=== PATIENT | female | born 1995 | race Caucasian/White ===

== ENCOUNTER 2018-02-14 19:57 | Inpatient (IN) | payer OTHER ==
[2018-02-14] MEDS ORDERED: Lactated Ringer's 1,000 ML IV ONE (21:54)
[2018-02-14 21:58] VITALS: BMI 38.2
[2018-02-14] MEDS ORDERED: Betamethasone Soluspan 30 mg/5mL Inj Susp IM ONE (22:05)
[2018-02-14 22:16] LABS: BASO % 0.4 % (0.0-2.0); EOS % 0.6 % (0.0-4.0); HEMOGLOBIN 10.6 g/dL (12.0-16.0); LYMPH # 2.6 K/uL (1.0-4.3); LYMPH % 27.3 % (20.0-40.0); MEAN CELL VOLUME 83.6 fl (81.0-99.0); MEAN CORPUSCULAR HEMOGLOBIN 28.7 pg (27.0-31.0); MEAN CORPUSCULAR HGB CONC 34.3 g/dL (33.0-37.0); MEAN PLATELET VOLUME 8.2 fl (7.2-11.7); MONO # 0.7 K/uL (0.0-0.8); MONO % 7.2 % (0.0-10.0); NEUT # 6.2 K/uL (1.8-7.0); NEUT % 64.5 % (50.0-75.0); RBC 3.71 Mil/uL (3.80-5.20); RED CELL DISTRIBUTION WIDTH 13.4 % (11.5-14.5); WHITE BLOOD COUNT 9.7 K/uL (4.8-10.8)
[2018-02-14 22:17] LABS: EOS # 0.1 K/uL (0.0-0.7)
[2018-02-14 22:34] LABS: URINE CLARITY CLOUDY (Clear); URINE COLOR YELLOW (YELLOW); URINE GLUCOSE (UA) NEG (Normal)
[2018-02-14 22:35] LABS: URINE BILIRUBIN NEGATIVE (NEGATIVE); URINE BLOOD SMALL (NEGATIVE); URINE PROTEIN NEGATIVE (NEGATIVE); URINE UROBILINOGEN 0.2 mg/dL (0.2-1.0)
[2018-02-14 22:36] LABS: SQUAMOUS EPITHIAL 15 /hpf (0-5); URINE BACTERIA OCC (<OCC); URINE CALCIUM OXALATE CRYSTALS FEW /hpf (<OCC); URINE LEUKOCYTE ESTERASE LARGE Leu/uL (Negative)
[2018-02-15 01:57] VITALS: RESP 20
[2018-02-15] MEDS ORDERED: Betamethasone Soluspan 30 mg/5mL Inj Susp IM ONE (22:00)
[2018-02-16] MEDS ORDERED: Oxytocin 30 UNIT 30 UNITS/500 ML BAG IV ONE (11:00)
[2018-02-16] MEDS: Lactated Ringer's 1,000 ML IV SCH ×2 (12:00→19:15)
[2018-02-16 20:00] LABS: BARBITURATES, UR NEGATIVE (NEGATIVE); BENZODIAZEPINES, UR NEGATIVE (NEGATIVE); OPIATES, UR NEGATIVE (NEGATIVE); PHENCYCLIDINE, UR NEGATIVE (NEGATIVE)
--- NOTE | 2018-02-16 23:08 | OBPN ---
Datetime: 02/16/2018 23:07 IP Progress Impression Other: category 1 heart tracing IP Progress Plan: Continue present management; Augmentation FHR - Baseline A Provider: 120s-130s Vital Signs Provider: Reviewed; Within Normal Limits NICHD Accel Fetus A IP Provider: 15X15 NICHD Variability Prov Fetus A: Moderate 6-25bpm Datetime: 02/16/2018 09:45 IP Progress Impression: Normal progression of labor IP Informed Consent Obtain: Vaginal Delivery IP Progress Note Comment: Cervidil removed exam: closed, 60%, -3 Pt able to shower, eat breakfast and start augmenting with pitocin Addendum: I saw patient and discussed plan. Plan to start Pitocin augmentation. All patient questions answer ed. Ariadna Case dw Dr. Ariadna Cleveland MD PGY2 Datetime: 02/15/2018 19:51 Contraction Comments Provider: Sporadic Gestation - Est Wks by US: 36.3 FHR Category Provider Fetus A: Category I Dilatation, Provider: 1 Effacement, Provider: 10 Station, Provider: -3 NICHD Decel Fetus A IP Provider: None Datetime: 02/15/2018 08:48 IP Procedures: Sterile Vag Exam
--- NOTE | 2018-02-16 23:12 | OBPN ---
Datetime: 02/16/2018 23:07 IP Progress Note Comment: Category 1 heart tracing. Plan to continue current management. Discu ssed plan with patient all patient questions answered. FHR Category Provider Fetus A: Category I NICHD Decel Fetus A IP Provider: None
[2018-02-17] MEDS: Lactated Ringer's 1,000 ML IV SCH ×4 (03:00→13:46)
[2018-02-17] MEDS ORDERED: Oxytocin 30 UNIT 30 UNITS/500 ML BAG IV ONE (08:38)
[2018-02-17] MEDS ORDERED: ceFAZolin 2 GM in Sodium Chloride 0.9% 100 ML IVPB ONE (08:38)
[2018-02-17] MEDS ORDERED: ceFAZolin IV 2 gm in Dextrose 2 GM/50 ML BAG IVPB ONE (08:38)
[2018-02-17] MEDS ORDERED: OXYTOCIN/0.9 % NS 20 UNIT/1,000 ML BAG IV SCH (08:45)
--- NOTE | 2018-02-17 10:37 | OBPN ---
Datetime: 02/17/2018 08:42 IP Progress Impression: Arrest of dilatation/descent; Reassuring heart rate IP Informed Consent Obtain: Section Delivery IP Procedures: Sterile Vag Exam IP Progress Plan: Deliver- Section FHR - Baseline A Provider: 130 IP Progress Note Comment: 24 YO G@ 36.5wks IUP is examined in L_D this AM. Feeling well, minimal ayana n. VS remain wnl Cervx: FT Strip: HR 130, Catagory I A/P: 36.5wks IUP. Failure to progress. Pt requesting to stop IOL and would like to have a c-sectio n at this time. -Consent signed for -PIT ordered -Ancef 2gm ordered OB Hospitalist note: This morning on rounds, I saw and examined this patient. I examined her (no cervical change). She understood about conitnued IOL, labor, delivery and . With failed induction/failure to progress, she understood about operative delivrey with risks/complications...inf ormed consent obtained Vital Signs Provider: Reviewed; Within Normal Limits NICHD Accel Fetus A IP Provider: 15X15 FHR Category Provider Fetus A: Category I NICHD Variability Prov Fetus A: Moderate 6-25bpm Dilatation, Provider: FT NICHD Decel Fetus A IP Provider: None
[2018-02-17] MEDS ORDERED: Morphine 1 mg/ml preservative-free Inj(Duramorph) ONE (11:06)
[2018-02-17] MEDS ORDERED: Midazolam 2 MG/2 ML VIAL ONE (11:06)
[2018-02-17] MEDS ORDERED: Oxycodone/Acetaminophen 5/325 mg Tab PO PRN ×2 (12:34→12:51)
[2018-02-17] MEDS: DiphenhydrAMINE 50 mg/ml Inj IVP PRN ×2 (13:41→21:29)
[2018-02-17] MEDS: OXYTOCIN/0.9 % NS 20 UNIT/1,000 ML BAG IV SCH ×2 (13:46→13:47)
--- NOTE | 2018-02-17 18:20 | OBDS ---
DELIVERY PERSONNEL Delivery Doctor: Fransisco Bynum DO Scrub Nurse: Felecia Garcia Helicopter Technician: Jena Rowe client service administrator: Angel Awad MD MATERNAL INFORMATION Delivery Anesthesia: Spinal Medications in Delivery: pitocin Estimated Blood Loss (ml): 800 Placenta Cultured: No Maternal Complications: None RN Comments: Atraumatic Primary of viable baby girl with Lusty cry at 2390 grams Infant R ecieved by Dr. Negro and assigned 9/9 's Fibriod uterus notedn EBL at 800cc. tolerated delivery well but was noted tachypnea. Skin to skin initiated. taken to Nursery afterr 5 minutes d ue to respiration for further evaluation (Annotations: Data stored by N on behalf of user) Provider Comments: Pre Op Dx: IUP at36w/ failed induction/failure to progress Post Op Dx same; fibroid uterus Procedure: Primary LTCS via Pfannenstiel incision Surgeon: Dr Fletcher Perdomo Anesth: Dr Awad Anesth: spinal Findings: live female delivered from [facility] presentation; clear fluid; one loose nuchal cord; one fundal fibroid; ovaries and tubes WNL grossly; placenta delivreed intact manually -EBL 800cc -She remained stable -all equipment sponges and needles accounted for LABOR SUMMARY EDC: 03/12/2018 00:00 No. Babies in Womb: 0 Attempted: No Labor Anesthesia: Spinal LABOR INFORMATION Reason for Induction: Oligohydramnios Cervical Ripening Agents: Cervidil Oxytocin: N/A Group B Beta Strep: Done, Result Unknown (Annotations: Done 02/14/2018) Antibiotics # of Doses: 1 Antibiotics Time of Last Dose: 11:25 Steroids Given: Full Course Reason Steroids Not Administered: Not Applicable Other Reason Not Administered: given MEMBRANES Membranes Rupture Method: Artificial Rupture of Membranes: 02/17/2018 11:53 Length of Rupture (hrs): 0.02 Amniotic Fluid Color: Clear Amniotic Fluid Amount: Small Amniotic Fluid Odor: Normal STAGES OF LABOR Stage 3 hrs: 0 Stage 3 min: 1 VAGINAL DELIVERY Episiotomy: None Laceration Extension: N/A Laceration Type: None CSECTION DELIVERY Primary Indication: Failed Induction Secondary Indication: failure to progress CSection Urgency: Non Elective CSection Incidence: Primary CSection Incision: Lower Uterine Transverse Uterine Closure: Double-layer closure BABY A INFORMATION Infant Delivery Date/Time: 02/17/2018 11:54 Method of Delivery: Born in Route : No : N/A Forceps: N/A Vacuum Extraction: N/A Shoulder Dystocia : Yes SHOULDER DYSTOCIA BABY A Delivery Date/Time: 02/17/2018 11:54 PRESENTATION/POSITION BABY A Presentation: Cephalic Cephalic Presentation: Vertex Vertex Position: Left Occipital Anterior Breech Presentation: N/A PLACENTA INFORMATION BABY A Placenta Delivery Time : 02/17/2018 11:55 Placenta Method of Delivery: Manual Removal Placenta Status: Delivered SCORES BABY A Heart Rate 1 min: >100 bpm Resp Effort 1 min: Good Cry Reflex Irritability 1 min: Cough or Sneeze or Pulls Away Muscle Tone 1 min: Active Motion Color 1 min: Body [place], Extremities Blue Resuscitation Effort 1 min: N/A SCORE 1 MIN: 9 Heart Rate 5 min: >100 bpm Resp Effort 5 min: Good Cry Reflex Irritability 5 min: Cough or Sneeze or Pulls Away Muscle Tone 5 min: Active Motion Color 5 min: Body [place], Extremities Blue Resuscitation Effort 5 min: N/A SCORE 5 MIN: 9 INFORMATION BABY A Gestational Age at Delivery: 36.5 Gestational Status: Term Infant Outcome : Liveborn Condition : Stable Infant Sex: Female IDENTIFICATION/MEDS BABY A ID Band Number: [id number] ID Band Location: Right Leg; Right Arm WEIGHT/LENGTH BABY A Birthweight (gms): 2390 Infant Weight (lb): 5 Weight (oz): 4 CORD INFORMATION BABY A No. Cord Vessels: 3 Nuchal Cord : Around Neck x1, Loose Cord Blood Taken: No Suction: Mouth; Nose ASSESSMENT BABY A Infant Complications: Other Infant Complications Other: Tachypnea Physical Findings at Delivery: Within Normal Limits Infant Respirations: Tachypnea Facility Technician/ALS Called : No Care By: Dr Nix Transferred To: Nursery
--- NOTE | 2018-02-17 18:24 | OBDS ---
DELIVERY PERSONNEL Delivery Doctor: Fransisco Bynum DO Scrub Nurse: Felecia Garcia Architect Intern: Jena Rowe deck officer: Angel Awad MD MATERNAL INFORMATION Delivery Anesthesia: Spinal Medications in Delivery: pitocin Estimated Blood Loss (ml): 800 Placenta Cultured: No Maternal Complications: None RN Comments: Atraumatic Primary of viable baby girl with Lusty cry at 2390 grams Infant R ecieved by Dr. Negro and assigned 9/9 's Fibriod uterus notedn EBL at 800cc. tolerated delivery well but was noted tachypnea. Skin to skin initiated. taken to Nursery afterr 5 minutes d ue to respiration for further evaluation (Annotations: Data stored by N on behalf of user) Provider Comments: Pre Op Dx: IUP at36w/ failed induction/failure to progress Post Op Dx same; fibroid uterus Procedure: Primary LTCS via Pfannenstiel incision Surgeon: Dr Fletcher Perdomo Anesth: Dr Awad Anesth: spinal Findings: live female delivered from [facility] presentation; clear fluid; one loose nuchal cord; one fundal fibroid; ovaries and tubes WNL grossly; placenta delivreed intact manually -EBL 800cc -She remained stable -all equipment sponges and needles accounted for LABOR SUMMARY EDC: 03/12/2018 00:00 No. Babies in Womb: 0 Attempted: No Labor Anesthesia: Spinal LABOR INFORMATION Reason for Induction: Oligohydramnios Cervical Ripening Agents: Cervidil Cervical Ripening Agents: Cervidil Cervical Ripening Agents: Cervidil Cervical Ripening Agents: Cervidil Cervical Ripening Agents: Cervidil Cervical Ripening Agents: Cytotec @ Cervical Ripening Agents: Cytotec @ Cervical Ripening Agents: Cervidil Oxytocin: N/A Group B Beta Strep: Done, Result Unknown (Annotations: Done 02/14/2018) Antibiotics # of Doses: 1 Antibiotics Time of Last Dose: 11:25 Steroids Given: Full Course Reason Steroids Not Administered: Not Applicable Other Reason Not Administered: given MEMBRANES Membranes Rupture Method: Artificial Rupture of Membranes: 02/17/2018 11:53 Length of Rupture (hrs): 0.02 Amniotic Fluid Color: Clear Amniotic Fluid Amount: Small Amniotic Fluid Odor: Normal STAGES OF LABOR Stage 3 hrs: 0 Stage 3 min: 1 VAGINAL DELIVERY Episiotomy: None Laceration Extension: N/A Laceration Type: None CSECTION DELIVERY Primary Indication: Failed Induction Secondary Indication: failure to progress CSection Urgency: Non Elective CSection Incidence: Primary CSection Incision: Lower Uterine Transverse Uterine Closure: Double-layer closure BABY A INFORMATION Delivery Date/Time: 02/17/2018 11:54 Method of Delivery: Born in Route : No : N/A Forceps: N/A Vacuum Extraction: N/A Shoulder Dystocia : Yes SHOULDER DYSTOCIA BABY A Delivery Date/Time: 02/17/2018 11:54 PRESENTATION/POSITION BABY A Presentation: Cephalic Cephalic Presentation: Vertex Vertex Position: Left Occipital Anterior Breech Presentation: N/A PLACENTA INFORMATION BABY A Placenta Delivery Time : 02/17/2018 11:55 Placenta Method of Delivery: Manual Removal Placenta Status: Delivered SCORES BABY A Heart Rate 1 min: >100 bpm Resp Effort 1 min: Good Cry Reflex Irritability 1 min: Cough or Sneeze or Pulls Away Muscle Tone 1 min: Active Motion Color 1 min: Body [place], Extremities Blue Resuscitation Effort 1 min: N/A SCORE 1 MIN: 9 Heart Rate 5 min: >100 bpm Resp Effort 5 min: Good Cry Reflex Irritability 5 min: Cough or Sneeze or Pulls Away Muscle Tone 5 min: Active Motion Color 5 min: Body [place], Extremities Blue Resuscitation Effort 5 min: N/A SCORE 5 MIN: 9 INFORMATION BABY A Gestational Age at Delivery: 36.5 Gestational Status: Term Outcome : Liveborn Condition : Stable Sex: Female IDENTIFICATION/MEDS BABY A ID Band Number: [id number] ID Band Location: Right Leg; Right Arm WEIGHT/LENGTH BABY A Infant Birthweight (gms): 2390 Infant Weight (lb): 5 Weight (oz): 4 CORD INFORMATION BABY A No. Cord Vessels: 3 Nuchal Cord : Around Neck x1, Loose Cord Blood Taken: No Suction: Mouth; Nose ASSESSMENT BABY A Infant Complications: Other Infant Complications Other: Tachypnea Physical Findings at Delivery: Within Normal Limits Respirations: Tachypnea Materials Management Manager/ALS Called : No Infant Care By: Dr Nix Transferred To: Nursery
[2018-02-18 06:37] LABS: HEMOGLOBIN 9.3 g/dL (12.0-16.0); MEAN CELL VOLUME 84.7 fl (81.0-99.0); MEAN CORPUSCULAR HEMOGLOBIN 28.5 pg (27.0-31.0); MEAN CORPUSCULAR HGB CONC 33.6 g/dL (33.0-37.0); RBC 3.27 Mil/uL (3.80-5.20); RED CELL DISTRIBUTION WIDTH 13.8 % (11.5-14.5); WHITE BLOOD COUNT 12.3 K/uL (4.8-10.8)
[2018-02-18] MEDS: Multivitamin With Minerals Tab PO SCH (08:50)
--- NOTE | 2018-02-18 16:26 | OBPPN ---
Datetime: 02/18/2018 16:22 PP Pain Prov: Within normal limits PP Nausea Prov: Denies PP Flatus Prov: Yes PP Breasts Prov: Normal PP Heart Prov: Normal PP Lungs Prov: Normal PP Abdomen/Uterus Prov: Normal PP Lochia Prov: Normal PP Vulva/Perineum Prov: Normal PP CVA Tenderness Prov: Normal PP Extremities Prov: Normal PP Comments Phys Exam Prov: Fundus firm under umbilicus Incision clean/dry/intact PP Impression Prov: Normal progression PP Plan Prov: Continue present management PP Progress Note Prov: Patient evaluated, denies, GONZALES, no SOB, no CP, tolerating PO diet, ambulating/ voiding well, mild lochia, abdominal pain tolerable with meds, mild lochia, no flatus A/P POD #1 1. continue current postop orders 2. Encourage ambulation/ 3. Motrin/Percocet prn pain IP PP Procedures: None Vital Signs Provider PP: Reviewed; Within Normal Limits
[2018-02-19] MEDS: Multivitamin With Minerals Tab PO SCH (10:21)
--- NOTE | 2018-02-19 10:49 | OBPPN ---
Datetime: 02/19/2018 10:45 PP Pain Prov: Within normal limits PP Nausea Prov: Denies PP Flatus Prov: Yes PP BM Prov: No PP Breasts Prov: Normal PP Heart Prov: Normal PP Lungs Prov: Normal PP Abdomen/Uterus Prov: Normal PP Lochia Prov: Normal PP Vulva/Perineum Prov: Normal PP CVA Tenderness Prov: Normal PP Extremities Prov: Normal PP C/S Incision Prov: Normal PP Progress Prov: Normal PP Impression Prov: Normal progression PP Plan Prov: Continue present management PP Progress Note Prov: She feels fine. Some incisional pain. No dizziness. No SOB. Ambulating withou t difficulty No BM H/H A: S/P C/S day 2 Anemia: asymptomatic No BM PLAN: Dulcolax; ambualte anticipate discharge in AM Vital Signs Provider PP: Reviewed; Within Normal Limits
--- NOTE | 2018-02-19 12:23 | OBDCSUM ---
Datetime: 02/19/2018 12:23 Discharged to, Provider: Home Follow up at, Provider: Drea Disch Instr Activity: Normal activity Disch Instr Diet: Regular Discharge Instructions, Provider: Routine instructions given Discharge Diagnosis, Provider: Term Delivered Follow up in weeks, Provider: 1-2w Disch Referrals: None Contraception discussed, Prov: Yes Disch Activity Restrictions: No lifting; Minimize stair-climbing; No sexual activity; Nothing in vag lenore - [place], tampons, douche
--- NOTE | 2018-02-19 12:23 | OBPPN ---
Datetime: 02/19/2018 12:21 PP Progress Note Prov: Notified that she had BM and wantstog home. she was admitted and induced for 3d and she wants to be in her own home. She felt fine. Discharge home and follow up 1-2w
[2018-02-19 23:35] VITALS: BP 108/76; PULSE 88; TEMP 98.2; O2SAT 98
--- NOTE | 2018-02-20 07:52 | OP ---
PROCEDURE DATE: 02/17/2018 PREOPERATIVE DIAGNOSES: Intrauterine at 36 weeks gestation, oligohydramnios, failed induction and failure to progress. POSTOPERATIVE DIAGNOSES: 1. Intrauterine at 36 weeks gestation, oligohydramnios, failed induction and failure to progress. 2. Fibroid uterus. PROCEDURE: Primary low transverse section via Pfannenstiel incision. SURGEON: Chaitanya Bynum DO. POLICE COMMANDING OFFICER: Matt Perdomo MD (Dr. Perdomo is a board certified [employer] physician who is available for this procedure. His presence was vital and necessary for this operation. He was present from the time of skin incision till the delivery of the infant to the closure of the skin. There was no resident or medical or surgical instrument maker available.) ANESTHESIOLOGIST: Angel Awad MD. ANESTHESIA: Spinal. OPERATIVE FINDINGS: A live infant female was delivered from cephalic presentation. Clear amniotic fluid noted. One loose nuchal cord noted. Small fundal fibroid noted approximately 2 to 3 cm in size. Ovaries and tubes appear to be within normal limits grossly. Placenta was delivered intact manually. She tolerated the procedure well and was transferred to the recovery room in stable condition. All equipments, sponges and needles accounted for. DESCRIPTION OF PROCEDURE: Linn was brought to the operating room after successful spinal anesthesia by Dr. Awad. She was placed in the supine position. She was then draped and prepped in the usual sterile manner. Catheter was used to drain the bladder of its contents and left in place. Compression boots were placed on both lower extremities. She was then draped and prepped in the usual sterile manner. After confirmation anesthesia was working adequately, a Pfannenstiel incision was made using a scalpel. Using electrocautery, incision was made until fascia was identified. using electrocautery fascia was nicked in the midline and extended bilaterally. Inferior aspect of the fascia was grasped using two Jules clamps, tented up in the rectus muscle with both bluntly and sharply dissected using electrocautery. The same was done with the superior aspect of the fascia. In the midline superiorly, the rectus muscles was bluntly. Peritoneum was identified and tented up using two Nelli clamps and then incised using Metzenbaum scissors. Incision was then extended superiorly and inferiorly with direct visualization of bladder and intestines. Two lap pads were placed on both paracolic gutters. Bladder blade was then inserted. Peritoneum on the uterus was incised using Metzenbaum scissors and then incised and extending bilaterally creating a bladder flap. Bladder flap was created digitally. Bladder blade was then inserted behind the bladder flap, a low transverse incision was made using scalpel. Upon entering the uterus, incision was then extended bilaterally using bandage scissors. Thereafter, the 's head was delivered as atraumatically as possible. One loose nuchal cord was noted, this was reduced successfully. Infant was bulb suctioned nasopharyngeally. was crying spontaneously. Remainder of the was then delivered as atraumatically as possible. Cord was clamped and cut. was handed to sales account coordinator in attendance. Cord bloods were obtained. Placenta was delivered intact manually. Uterus was then exteriorized, and cleared of debris and clots. Good contracture of the uterus was noted. An 0 Vicryl suture was used to close the first layer of the uterus. Second layer of the uterus closed using 0 Vicryl suture imbricating the first layer. Good hemostasis was assured. Posterior cul-de-sac was noted to be cleared of debris and clots, two paracolic gutter lap pads were removed and accounted for. Copious irrigation was performed. Uterus placed back into peritoneal cavity. Incision line was reinspected and noted to have good hemostasis. All equipments were removed and accounted for. An 0 Vicryl suture was used to approximate the peritoneum in a running fashion. Rectus muscle was noted to have good hemostasis and approximated x3 using 0 Vicryl suture, 0 Vicryl suture was used to approximate the fascial layer in a running fashion. Irrigation was performed. Hemostasis was assured using electrocautery. A 2-0 plain suture was used to approximate the subcuticular layer x3, 3-0 Vicryl suture was used to approximate the skin. Dermabond, Steri-Strips and pressure bandage applied. She tolerated the procedure well and was transferred to the recovery room in stable condition. All equipments, sponges and needles accounted for. Chaitanya Bynum DO [facility]
== END 2018-02-19 14:45 | disposition home or self-care (01) | DRG 788 ==
LOC: H.EROB2 19:57 → H.L&D 21:52 → H.OB/GYN 02-17 16:00
PROVIDERS: ADMIT Obstetrics & Gynecology; ATTEND Obstetrics & Gynecology
PROC: 4A1HXCZ Monitoring of Products of Conception, Cardiac Rate, External Approach (ICD-10-PCS; 2018-02-14)
PROC: 10D00Z1 Extraction of Products of Conception, Low, Open Approach (ICD-10-PCS; principal; 2018-02-17)
DX: O41.03X0 Oligohydramnios, third trimester, not applicable or unspecified (principal); Z3A.36 36 weeks gestation of pregnancy; Z37.0 Single live birth; O34.13 Maternal care for benign tumor of corpus uteri, third trimester; D25.9 Leiomyoma of uterus, unspecified; O61.8 Other failed induction of labor; O66.0 Obstructed labor due to shoulder dystocia; O69.81X0 Labor and delivery complicated by cord around neck, without compression, not applicable or unspecified